=== PATIENT | female | born 1965 | race African-American/Black ===

== ENCOUNTER 2016-12-29 15:42 | Emergency (ER) | payer MEDICAID ==
[~2016-12-29] VITALS: Ht 167.6 cm; Wt 95.0 kg
[2016-12-29] MEDS ORDERED: ACETAMINOPHEN 325MG TABLET PO ONE (18:30)
[2016-12-29 19:21] LABS: BASOPHILS % 0.8 % (0.0-2.0); EOSINOPHILS % 1.4 % (0.0-5.0); HEMATOCRIT. 40.3 % (36.0-48.0); HEMOGLOBIN. 13.1 g/dL (12.0-16.0); LYMPHOCYTES % 30.4 % (20.0-50.0); MEAN CORPUSCULAR HEMOGLOBIN 26.5 pg (28.0-32.0); MEAN CORPUSCULAR HGB CONC 32.5 g/dL (31.0-37.0); MEAN CORPUSCULAR VOLUME 81.3 fL (81.0-99.0); MEAN PLATELET VOLUME 8.3 fl (7.4-10.4); MONOCYTES % 6.5 % (2.0-8.0); NEUTROPHILS % 60.9 % (40.0-76.0); PLATELET 303 x1000/uL (130-400); RED BLOOD CELL COUNT 4.96 mill/uL (4.2-5.4); RED CELL DISTRIBUTION WIDTH 17.5 % (11.6-14.6); WHITE BLOOD COUNT 9.6 x1000/uL (4.5-11.0)
[2016-12-29 19:27] LABS: HCG SCREEN NEGATIVE
[2016-12-29 19:30] LABS: ALBUMIN 3.6 g/dL (3.4-5.0); ANION GAP 12; CARBON DIOXIDE 29 mEq/L (21-32); CHLORIDE 103 mEq/L (98-107); ETHANOL BLOOD < 10 mg/dL; INDEX HEMOLYSI 1 (1-3); INDEX ICTERIC 1 (1-4); INDEX LIPEMIC 1 (1-3); UREA NITROGEN BLOOD 16 mg/dL (7-21)
[2016-12-29 19:36] LABS: ACETAMINOPHEN < 2 ug/mL (10-30); ALANINE AMINOTRANSFERASE 23 IU/L (13-61); eGFR > 60 mL/min (>60)
[2016-12-29 19:41] LABS: CLARITY URINE CLOUDY (CLEAR); COLOR URINE YELLOW (YELLOW); GLUCOSE URINE TRACE (NEGATIVE); KETONES URINE TRACE (NEGATIVE); LEUKOCYTE ESTERASE URINE TRACE (NEGATIVE); NITRITE URINE NEGATIVE (NEGATIVE); OCCULT BLOOD URINE NEGATIVE (NEGATIVE); PROTEIN URINE TRACE (NEGATIVE); SPECIFIC GRAVITY URINE 1.034 (1.005-1.030)
[2016-12-29 19:41] LABS: THYROID STIMULATING HORMONE 0.63 mIU/mL (0.36-3.74)
[2016-12-29] MEDS ORDERED: CEPHALEXIN 500MG CAPSULE PO ONE (19:45)
[2016-12-29 19:50] LABS: *AMPHETAMINES SCREEN URINE PRESUMTIVE POSITIVE (NEGATIVE); *BARBITURATES SCREEN URINE NEGATIVE (NEGATIVE); *BENZODIAZEPINES SCREEN URINE PRESUMTIVE POSITIVE (NEGATIVE); *COCAINE SCREEN URINE PRESUMTIVE POSITIVE (NEGATIVE); CANNABINOID URINE SCREEN NEGATIVE (NEGATIVE); ECSTASY MDMA SCREEN URINE NEGATIVE (NEGATIVE); METHADONE URINE SCREEN NEGATIVE (NEGATIVE); OPIATES URINE SCREEN NEGATIVE (NEGATIVE); PHENCYCLIDINE URINE SCREEN NEGATIVE (NEGATIVE)
[2016-12-29 20:42] VITALS: BP 121/83
[2016-12-29 21:51] LABS: CALCIUM OXALATE CRYSTALS URINE 2+ /lpf; MUCUS URINE 1+ /lpf (< = 2+); SQUAMOUS EPITHELIAL CELL URINE 2+ /lpf (RARE/1+)
[2016-12-29 21:52] LABS: RBC URINE 0-2 /hpf (0-2)
[2016-12-29 21:53] LABS: BACTERIA URINE 2+
== END 2016-12-29 20:44 | disposition home or self-care (01) ==
LOC: ER 16:27
DX: S09.90XA Unspecified injury of head, initial encounter (principal); S00.511A Abrasion of lip, initial encounter; E11.9 Type 2 diabetes mellitus without complications; F32.9 Major depressive disorder, single episode, unspecified; I10 Essential (primary) hypertension; F99 Mental disorder, not otherwise specified; F17.210 Nicotine dependence, cigarettes, uncomplicated; F12.10 Cannabis abuse, uncomplicated; Z88.6 Allergy status to analgesic agent; Y04.0XXA Assault by unarmed brawl or fight, initial encounter; Y92.018 Other place in single-family (private) house as the place of occurrence of the external cause
CPT/HCPCS: 36415; 70450; 80053; 80305; 80329; 81001; 84443; 84703; 85025; 99285; G0482; 80307